=== PATIENT | male | born 1950 | race Caucasian/White ===

== ENCOUNTER → 2018-08-03 | Day surgery (SDC) | payer BC, MEDICARE ==
[2018-08-02 15:23] LABS: BASOPHILS # (AUTO) 0.1 (0.0-0.1); BASOPHILS % 0.8 % (0.0-1.0); EOSINOPHILS # (AUTO) 0.3 (0.0-0.4); HEMATOCRIT 49.2 % (38.2-49.6); HEMOGLOBIN 16.7 g/dL (14.0-18.0); LYMPHOCYTES % 25.9 % (18.0-39.1); MEAN CORPUSCULAR HEMOGLOBIN 32.6 pg (28-32); MEAN CORPUSCULAR HGB CONC 33.9 g/dL (31-35); MEAN CORPUSCULAR VOLUME 95.9 fL (81-99); MONOCYTES # (AUTO) 0.8 (0.2-0.8); MONOCYTES % 10.2 % (4.4-11.3); NEUTROPHILS # (AUTO) 4.6 (2.1-6.9); NEUTROPHILS % 58.8 % (38.7-80.0); PLATELET COUNT 194 x10e3/uL (140-360); RED BLOOD COUNT 5.13 x10e6/uL (4.3-5.7); RED CELL DISTRIBUTION WIDTH 13.1 % (11.7-14.4)
[2018-08-02 15:47] LABS: ALANINE AMINOTRANSFERASE 16 IU/L (0-55); ALBUMIN 3.9 g/dL (3.5-5.0); ALBUMIN/GLOBULIN RATIO 1.3 (0.8-2.0); ALKALINE PHOSPHATASE 52 IU/L (40-150); ANION GAP 17.9 mmol/L (8-16); BLOOD UREA NITROGEN 18 mg/dL (7-26); BUN/CREATININE RATIO 23 (6-25); CALCIUM 9.2 mg/dL (8.4-10.2); CARBON DIOXIDE 23 mmol/L (22-29); CHLORIDE 101 mmol/L (98-107); CHOL/HDL RATIO 3.3 (3.9-4.7); CHOLESTEROL 143 MD/DL (0-199); CREATININE, SERUM 0.79 mg/dL (0.72-1.25); EST GLOMERULAR FILTRATION RATE > 60 ML/MIN (60-); GLUCOSE 102 mg/dL (74-118); HDL CHOLESTEROL 44 MG/DL (40-60); LDL CHOLESTEROL 73 MG/DL (60-130); POTASSIUM 3.9 mmol/L (3.5-5.1); SODIUM 138 mmol/L (136-145); TRIGLYCERIDES 130 MG/DL (0-149)
[~2018-08-03] VITALS: Ht 172.7 cm; Wt 112.5 kg
[2018-08-03] VITALS (7 sets, daily range): BP systolic 90–116; BP diastolic 58–79
[~2018-08-03] MED LIST: ALPRAZOLAM 0.5 MG TAB ONE; DIOVAN160 MG PO; DIPHENHYDRAMINE HCL 25 MG CAP ONE; ELIQUIS PO; FENTANYL CITRATE/PF 100MCG/2 ML INJ ONE; HEPARIN SOD (PORCINE) 1000 UNIT/ML 30ML ONE; HEPARIN SOD/SOD CHLORIDE 2,000 ML ONE; IOPAMIDOL 370 MG/ML 200 ML INFUS..BTL INJ ONE; JARDIANCE PO; LANTUS 3ML100 UNITS/ SC; LATANOPROST2.5 ML OP; LEVOTHYROXINE50 MCG PO; LIDOCAINE HCL 1% LOCAL INJ 20 ML VIAL ONE; METFORMIN HCL500 MG PO; MIDAZOLAM HCL 2 MG/2 ML VIAL ONE; NITROGLYCERIN/D5W 200 MCG/ML 250 ML ONE; PRAVASTATIN SOD40 MG PO; SODIUM CHLORIDE 0.9% 1000ML 1,000 ML ONE; VERAPAMIL HCL 2.5 MG/ML 2 ML VIAL ONE; VICTOZA 2-0.6 MG/0.1 SC
--- NOTE | 2018-08-03 13:15 | NUR ---
Received patient to [facility] holding room 10. Patient a & o x 3. at bedside. Vital signs stable, TR band to right radial. Food tray order and patient informed. Patient instructed not to bend or use right hand or wrisy. Patient and verbalized understanding.
--- NOTE | 2018-08-03 13:28 | Operative Report ---
DATE OF PROCEDURE: August 03, 2018 INDICATIONS: Coronary artery disease, angina, abnormal stress test. PROCEDURES PERFORMED 1. Left heart catheterization, selective coronary angiography, left ventriculography. 2. Deployment of right wrist transradial band. COMPLICATIONS: None. BLOOD LOSS: 5 mL. RECOMMENDATIONS: Medical therapy. Access was obtained in the right radial artery. A 5-Welsh sheath was placed. Diagnostic coronary angiogram revealed mild disease in the left main, diagonal, left anterior descending, circumflex and obtuse marginal branches of 10% to 20% luminal stenosis. The right coronary artery mid 50%. Remaining vessel had mild disease. LV ejection fraction 50%. LV end-diastolic pressure of 15. No gradient across the aortic valve on pullback. Right wrist guide and sheath were removed. TR band applied. Patient discharged home same day. Job#: [id number]
--- NOTE | 2018-08-03 14:00 | NUR ---
Removed 3cc's of air from right wrist TR band. No bleeding or hematoma noted.
--- NOTE | 2018-08-03 14:15 | NUR ---
Removed 3 more cc's of air from right wrist TR band. No bleeding or hematoma noted. Vital signs stable.
--- NOTE | 2018-08-03 14:30 | NUR ---
Removed 3 cc's of air from right wrist TR band. No bleeding or hematoma noted. Vital signs remain stable. remains at bedside.
--- NOTE | 2018-08-03 14:50 | NUR ---
Remainder of air removed from right wrist TR band. No bleeding or hematoma noted. Dressing of 2x2 gauze and tegaderm applied to site. Patient and given discharge instructions. and patient verbalized understanding. Vital signs stable. IV removed with cannula intact. dressing applied after hemostasis obtained. Patient escorted to [facility] via for discharge home and driven by .
== END | disposition home or self-care (01) ==
LOC: CATH LAB 08:33
PROVIDERS: ATTEND Internal Medicine Interventional Cardiology
DX: I25.119 Atherosclerotic heart disease of native coronary artery with unspecified angina pectoris (principal); I48.2 Chronic atrial fibrillation; R94.39 Abnormal result of other cardiovascular function study; Z01.812 Encounter for preprocedural laboratory examination; Z79.4 Long term (current) use of insulin; Z79.02 Long term (current) use of antithrombotics/antiplatelets
CPT/HCPCS: 36415 ×2; 80053; 80061; 82948; 85025; 93458; C1887; J1644; J2001; J2250; J7030; Q9967

== ENCOUNTER → 2021-09-17 | Day surgery (SDC) | payer MEDICARE, OTHER ==
[2021-09-13 09:44] LABS: BASOPHILS % 0.4 % (0.0-1.0); EOSINOPHILS # (AUTO) 0.2 (0.0-0.4); EOSINOPHILS % 2.5 % (0.0-6.0); HEMATOCRIT 47.9 % (38.2-49.6); HEMOGLOBIN 15.7 g/dL (14.0-18.0); LYMPHOCYTES # (AUTO) 1.7 (1.0-3.2); LYMPHOCYTES % 23.3 % (18.0-39.1); MEAN CORPUSCULAR HEMOGLOBIN 32.6 pg (28-32); MEAN CORPUSCULAR HGB CONC 32.8 g/dL (31-35); MEAN CORPUSCULAR VOLUME 99.4 fL (81-99); MONOCYTES # (AUTO) 0.6 (0.2-0.8); MONOCYTES % 8.9 % (4.4-11.3); NEUTROPHILS # (AUTO) 4.6 (2.1-6.9); NEUTROPHILS % 64.6 % (38.7-80.0); PLATELET COUNT 174 x10e3/uL (140-360); RED BLOOD COUNT 4.82 x10e6/uL (4.3-5.7); RED CELL DISTRIBUTION WIDTH 13.4 % (11.7-14.4)
[2021-09-13 10:16] LABS: ALBUMIN 3.9 g/dL (3.5-5.0); ALBUMIN/GLOBULIN RATIO 1.1 (0.8-2.0); ANION GAP 14.5 mmol/L (8-16); CALCIUM 9.8 mg/dL (8.4-10.2); CREATININE, SERUM 1.01 mg/dL (0.72-1.25); POTASSIUM 4.5 mmol/L (3.5-5.1)
[2021-09-17] VITALS (13 sets, daily range): BP systolic 97–117; BP diastolic 50–68
[~2021-09-17] VITALS: Ht 172.7 cm; Wt 122.5 kg
[~2021-09-17] MED LIST changes: +BIVALRIUDIN 250 MG/VIAL VIAL IV ONE; -HEPARIN SOD (PORCINE) 1000 UNIT/ML 30ML ONE; -LIDOCAINE HCL 1% LOCAL INJ 20 ML VIAL ONE; -NITROGLYCERIN/D5W 200 MCG/ML 250 ML ONE; +SODIUM CHLORIDE 0.9% 50ML 50 ML ONE
== END | disposition home or self-care (01) ==
LOC: CATH LAB 13:15
PROVIDERS: ATTEND Internal Medicine Interventional Cardiology
DX: I25.119 Atherosclerotic heart disease of native coronary artery with unspecified angina pectoris (principal); R94.39 Abnormal result of other cardiovascular function study; I48.91 Unspecified atrial fibrillation; Z01.812 Encounter for preprocedural laboratory examination; Z20.822 Contact with and (suspected) exposure to COVID-19; Z79.4 Long term (current) use of insulin; Z79.02 Long term (current) use of antithrombotics/antiplatelets; Z79.899 Other long term (current) drug therapy
CPT/HCPCS: 93454; C9600; 36415; 80053; 82948; 83880; 85025; 92928; 99152; 99153; C1874; C1887; C1894; J0583; J2250; J3010; J7030; Q9967; U0002